=== PATIENT | male | born 1935 | race Caucasian/White ===

== ENCOUNTER 2024-01-31 01:35 | Emergency (ER) | payer BC ==
[~2024-01-31] VITALS: Ht 177.8 cm; Wt 64.8 kg
[2024-01-31 01:48] VITALS: BP 133/80; PULSE 59; RESP 16; TEMP 97.8; O2SAT 98
[2024-01-31] MEDS ORDERED: FLO0.4C PO (02:43)
[2024-01-31] MEDS: tamsulosin 0.4mg capsule PO ONE (02:53)
== END 2024-01-31 02:58 | disposition home or self-care (01) ==
LOC: ER 01:36
DX: N40.1 Benign prostatic hyperplasia with lower urinary tract symptoms (principal); R33.8 Other retention of urine; Z88.0 Allergy status to penicillin
CPT/HCPCS: 99283